=== PATIENT | female | born 1990 | race Caucasian/White ===

== ENCOUNTER 2018-04-25 10:53 | Day surgery (SDC) | payer OTHER ==
--- NOTE | 2018-04-24 20:57 | PDGENHP ---
History and Physical - Chief Complaint RIGHT HIP PAIN - History of Present Illness 1. Bilateral~Femoroacetabular impingement (JEM) Cam type,~with~resultant labral tear; RIGHT SIDE SYMPTOMATIC 2. 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 ~Yosi enjoys crew, yoga, hiking and weight lifting. Yonatan's~right~hip pain~started July 2017, with~no~recalled trauma or injury, and with~no~previous complaints.~Yosidoes not have~a known history of hip dysplasia. Presentation today is of~anterior, posterior, lateral~right~hip pain. ~The hip~ does not~wake her~at night and~does~click and catch on~her. Sitting~can be uncomfortable~for her.~Yosidoes~report suffering from lower back pain episodes. Yosihas~participated in physical therapy (over 6 weeks)~and has~tried other conservative measures including ultrasound treatment.~Aneta~has not~received sufficient symptomatic improvement. Yosihas~utilized medication for pain management, including NSAID.~Yosi has used this~medication~intermittently since the pain began. Yosidenies issues with the left~hip. ~ Yosiunderstands that~aneta~has a hip and pelvis problem which should be researched and wishes to get a better understanding of~her~hip status, followed by an establishment of a treatment strategy, hoping~gopiwould be able to get back to~her~well being active life. History: Past medical history:~~ None which is relevant~ Relevant familial history:~None which is relevant~ Past surgical history:~ None Yosihas never received general anesthesia. I have reviewed, verified and agree with the past medical, surgical, family and social history. Current Medications:~has a current medication list which includes the following prescription(s): 5-hydroxytryptophan. ALLERGIES:~has No Known Allergies. Objective: Physical Examination: Yosiis 5~feet~4~inches tall and weighs~143~Lbs. Yonatan~is AAO x3; she~is well-nourished, in NAD. Skin is warm and dry. ~Breathing is non-labored. ~CV with RRR by pulse. Abdomen is soft, NTND. Currently,~she~walks with a~abnormal~antalgic gait favoring Left side. Trendelenburg sign is~negative~and proprioception~is normal,~both~sides. She~presents~with moderate~signs of joint laxity.~Beightons Score:~5 (not knees) Lower spine examination is~negative~for sciatic or femoral nerve irritation with negative~SLR &~femoral stretch tests. Range of motion of the spine is normal~for flexion, extension, and rotations,~with no~associated pain. Strength, Sensation and pulses are~normal -~bilaterally Ankles and knees exams are~normal~and~no~mal-alignment is evident.~ She~has~left~0.5~cm short leg length discrepancy. Thigh circumference is~symmetric~with no evidence for muscle atrophy~on both~ sides. Hip ROM (degrees): FL ER At 90~hip FL IR At 90~hip FL AB AD EX IR Neutral hip ER Neutral hip R 105 55 15 35 5 10 50 25 L 105 50 40 45 5 10 55 15 Specific hip and pelvis tests: Impingement Test ALAN Roll Add. Longus R +++ +++ + + L Negative Negative Negative Negative Glut. Med ITB Posterior Imp R Negative 5/5 strength Negative 5/5 strength Negative L Negative 5/5 strength Negative 5/5 strength Negative Squeeze test measured~strong Bony Symphysis pubis is~pain free~to touch while concentric activity of the rectus abdominis, does not~produce pain at its insertion. Ilio Psos specific tests are~positive for pain during cycling for~the right hip~ and remarkable for non painful snap HF has~pain and some weakness Right Hip. Posterior~capsule tenderness RIGHT Hip Greater trochanteric burse is~pain free~on both hips. Piriformis tests: FAIR is~negative,~with no~local signs of neuritis related to sciatic nerve. SIJs examination is~normal~with~normal~ALAN in relation and local tenderness. Hamstrings tests are~negative~functional contraction and negative~tendinopathy both hips. On a daily basis, the following percentages reflectDoris's overall total pain : Deep hip:~100% Imaging: Radiology studies which I~have personally reviewed, analyzed and measured are below: XR: AP of the hip and pelvis: Performed in a~good~technique Coccyx to pubic symphysis distance~0.5~cm. 0~degrees [place]~Lines are preserved. Minimal~Pathological signs are seen in the Symphysis Pubis.~ Minimal~Pathological signs are seen at the Ischial~tuberosity. ~ Specific measurements show: NSA~ LCE Sourcil~Angle Sharp's angle Lat. Cam Lat. Pincer C.Over~sign Head~Coverage % ATDmm R N 22 7 42 + - - 78 N L N 25 5 35 + - - N N Pos. wall sign ISS NAD ~~Dysplasia Comments R Negative Negative 13.3~mm + L Negative Negative 20~mm Negative Sclerosis Sup. Lat. OA Cysts Joint Space-WBZ Joint Space-Medial R Negative Negative Negative 4.9~mm 4.3~mm L Negative Negative Negative 4.8~mm 3.0~mm X Table lateral: Anterior cam lesion is~seen~on both hips. Alpha Angle: ~ Right~62~dergrees Left~58~degrees Impression and plan:Oneida Delucais a~27 y.o.~active female~suffering from symptomatic~Right~hip pain due to Femoroacetabular impingement (JEM)~Cam type,~with~resultant labral tear and~Borderline Hip Dyplasia~causing significant disability to~her~and altering~ her~sport and life activities. Physical examination, imaging, and~her~story correspond with the diagnosis mentioned above. I explained that hip dysplasia is a condition wherein the hip joint has excessive play~and instability due to a variety of factors, including the depth and adequacy of the socket, the orientation of the femur bone, and ligament laxity around the hip joint. Dysplasia ranges in severity from borderline to priscilla, with treatment options being specific to the specific nature of the problem. Left untreated, the instability in the hip joint can cause progressive tearing of the labrum and deterioration of the surface cartilage, ultimately resulting in progressive osteoarthritis of the hip. I explained that femoroacetabular impingement (JEM - Cam type) arises due to a bony or soft tissue conflict between the femur (ball) and acetabulum (socket) caused by an abnormality in the shape of the femoral head and neck. Over time, repetitive impingement can result in damage to the labrum and adjacent surface cartilage within the socket, ultimately giving rise to progressive osteoarthritis of the hip. I explained that although a labral tear can be a source of pain, it is rarely the root of the problem and typically occurs secondary to an underlying abnormality in the shape and mechanics of the hip joint. I reviewed conservative treatment options for Dysplasia and JEM including activity modification to avoid positions of impingement or instability, physical therapy, non-steroidal anti-inflammatory medications, and various injections (corticosteroid and PRP) aimed at reducing inflammation in the hip joint or/and preventing dynamic instability and impingement. PRP injections may promote healing and reduce symptoms in certain cases but it will not repair chronically damaged tissue. Although these measures may help to buy time~and reduce current level of symptoms, they are not a definitive solution to the problem given the underlying abnormality in the shape of the hip joint. Patients who have failed conservative management and continue to experience symptoms are candidates for definitive surgical treatment, which may consist of hip arthroscopy alone or in combination with more invasive bony realignment procedures of the hip socket and/or femur called periacetabular osteotomy (LEDY) or derotational femoral osteotomy (DFO). Hip arthroscopy typically includes treating the labrum with either repair or reconstruction of the torn labrum; as well as addressing the underlying abnormalities by restoring the normal shape to the hip joint. If the cartilage is damaged a Microfracture surgical procedure may also be necessary to help stimulate the growth of fibrocartilage. If a patient requires a labral reconstruction or a Microfracture, the initial rehabilitation from the surgery may take longer, but the detention results are typically favorable. I reviewed the technical aspects of periacetabular osteotomy (LEDY) including risks, benefits, and expected course of recovery.~Yonatan~understands that LEDY is an inpatient procedure carried out through two medium sized incisions on the front and back of the hip joint. The hip socket is cut, realigned, and stabilized with 2 3 internal screws. Risks include infection, bleeding, injury to nearby nerves or vessels, stiffness, persistent pain, instability, failure of bony healing, implant related complications, and venous thromboembolic disease. Rarely, revision surgery may be required to address these problems. Risks, potential complications, side effects and recovery from surgical procedure were discussed in length. We explained how this surgery is an open procedure, and though patients tend to do well in the long-term, it involves significant pain in the first 2-4 weeks post-op and a rather lengthy rehab.~Overall recovery takes approximately 6 12~months depending on the extent of damage and degree of repair. Yosiunderstands that she~will undergo hip arthroscopy 1 week prior to the LEDY to address damage inside the hip joint. Yosiunderstands that hip arthroscopy and LEDY are two separate procedures that are best performed one week apart, with the arthroscopy commencing first to "tighten up" any pathology evident in the hip joint (labral repair, etc.) and the LEDY open procedure occurring 7-10 days later to realign the acetabulum. We encouraged~Yosito review our website to learn more about PRP injections. Yosiwill review the info presented. In order to obtain more detailed information regarding the alignment, orientation, and shape of the bony hip and pelvis I will order a CT scan to be performed. The results of the CT scan, including femoral torsion and acetabular version measured values and 3D images, will aid me in deciding on the best treatment strategy and surgical pre-planning. In order to better evaluate the soft tissues and cartilage of the hip joint, I will order an MRI scan. Yosiis going to contact us after completing her~imaging studies. Yosiis happy with this plan. I have also supplied~her~with handouts, outlining the expected surgical treatment and rehab involved. I wish~Valdomaliall the best, ~~ Josesito Rosales, PAC History Information - Allergies/Home Medication List Allergies/Adverse Reactions: diphenhydramine [From Benadryl] Allergy (Verified 04/06/18 12:41) "PAWING AT THINGS" WHILE ASLEEP nitrous oxide Allergy (Verified 04/06/18 12:41) MIGRAINE, NAUSEA Home Medications: Aleve 04/06/18 [Last Taken Unknown] Herbals/Supplements -Info Only 04/06/18 [Last Taken Unknown] Ibuprofen 04/06/18 [Last Taken Unknown] I have personally reviewed and updated: medical history - Social History Smoking Status: Never smoked Review of Systems Review of Systems: Physical Exam Physical Exam:
[2018-04-25] MEDS ORDERED: ACETAMINOPHEN 500 MG TAB PO ONE (11:26)
[2018-04-25] MEDS ORDERED: PREGABALIN 150 MG CAP PO ONE (11:26)
[2018-04-25] MEDS ORDERED: ceFAZolin 2 GM/DEXTROSE 100 ML IV ONE (11:26)
[2018-04-25] MEDS ORDERED: LR 1,000 ML IV ONE (11:27)
[2018-04-25] MEDS ORDERED: EPINEPHrine 30 MG/30 ML MDV (0.1 MG/0.1 ML) ONE (12:35)
[2018-04-25] MEDS ORDERED: BUPIVACAINE 0.25% 30 ML SDV ONE (12:35)
[2018-04-25] MEDS ORDERED: MIDAZOLAM 2 MG/2 ML VIAL IVP ONE (12:49)
--- NOTE | 2018-04-25 12:49 | PDANEPAE ---
ANE History of Present Illness right hip dysplasia, here for Right hip scope/bx ANE Past Medical History - Cardiovascular History Hx Hypertension: No Hx Arrhythmias: No Hx Chest Pain: No Hx Coronary Artery / Peripheral Vascular Disease: No Hx CHF / Valvular Disease: No Hx Palpitations: Yes Cardiovascular History Comment: OCCAS PALPITATIONS - MONITORED - Pulmonary History Hx COPD: No Hx Asthma/Reactive Airway Disease: No Hx Recent Upper Respiratory Infection: No Hx Oxygen in Use at Home: No Hx Sleep Apnea: No Sleep Apnea Screening Result - Last Documented: Negative - Neurologic History Hx Cerebrovascular Accident: No Hx Seizures: No Hx Dementia: No - Endocrine History Hx Diabetes: No - Renal History Hx Renal Disorders: No - Liver History Hx Hepatic Disorders: No - Neurological & Psychiatric Hx Hx Neurological and Psychiatric Disorders: No - Cancer History Hx Cancer: No - Congenital Disorder History Hx Congenital Disorders: No - GI History Hx Gastrointestinal Disorders: No Gastrointestinal History Comment: IBS. SENSITIVE STOMACH. LACTOSE INTOLERANT - Other Health History Other Health History: ECZEMA LEG. ROSACEA FACE - Chronic Pain History Chronic Pain: Yes (R HIP) - Surgical History Prior Surgeries: NONE ANE Review of Systems Review of Systems: - Exercise capacity METS (RN): 4 METS ANE Patient History - Allergies Allergies/Adverse Reactions: diphenhydramine [From Benadryl] Allergy (Verified 04/06/18 12:41) "PAWING AT THINGS" WHILE ASLEEP nitrous oxide Allergy (Verified 04/06/18 12:41) MIGRAINE, NAUSEA - Home Medications Home Medications: Aleve 04/06/18 [Last Taken 03/26/18] Herbals/Supplements -Info Only 04/06/18 [Last Taken 04/18/18] Ibuprofen 04/06/18 [Last Taken 04/18/18] - NPO status NPO Since - Liquids (Date): 04/25/18 NPO Since - Liquids (Time): 09:45 NPO Since - Solids (Date): 04/24/18 NPO Since - Solids (Time): 23:30 - Smoking Hx Smoking Status: Never smoked - Family Anes Hx Family Hx Anesthesia Complications: NONE ANE Labs/Vital Signs - Vital Signs Blood Pressure: 131/80 Heart Rate: 81 Respiratory Rate: 20 O2 Sat (%): 96 Height: 162.56 cm Weight: 67.132 kg ANE Physical Exam - Airway Neck exam: FROM Mallampati Score: Class 1 Mouth exam: normal dental/mouth exam - Pulmonary Pulmonary: no respiratory distress, no rales or rhonchi - Cardiovascular Cardiovascular: regular rate and rhythym, no murmur, rub, or gallop - ASA Status ASA Status: II ANE Anesthesia Plan Anesthesia Plan: general endotracheal anesthesia
[2018-04-25] MEDS ORDERED: MIDAZOLAM 2 MG/2 ML VIAL ONE (12:50)
[2018-04-25] MEDS ORDERED: LIDOCAINE 2% 100 MG/5 ML SYR ONE (13:06)
[2018-04-25] MEDS ORDERED: PROPOFOL 200 MG/20 ML VIAL ONE (13:06)
[2018-04-25] MEDS ORDERED: ROCURONIUM 100 MG/10 ML VIAL ONE (13:06)
[2018-04-25] MEDS ORDERED: fentaNYL 100 MCG/2 ML INJ ONE ×2 (13:06→16:32)
--- NOTE | 2018-04-25 15:10 | POSTOPPROG ---
Post Op Note Date of Operation: 04/25/18 Surgeon: Main Rooney Peanut Picker: Dr. Caldwell Anesthesia: GET(General Endotracheal) Pre-op Diagnosis: RIGHT JEM Post-op Diagnosis: RIGHT JEM Procedure: Right Hip Arthroscopy Inf/Abcess present in the surg proc area at time of surgery?: No
[2018-04-25] MEDS ORDERED: HYDROmorphONE/DILAUDID 2 MG/ML INJ ONE (16:32)
[2018-04-25] MEDS ORDERED: NALOXONE HCL 0.4 MG/ML INJ IVP PRN (16:33)
[2018-04-25] MEDS ORDERED: DIAZEPAM 5 MG/ML 1 ML SYR IVP PRN (16:33)
[2018-04-25] MEDS ORDERED: oxyCODONE IR 5 MG TAB PO PRN (16:33)
[2018-04-25] MEDS ORDERED: PROMETHAZINE HCL 25 MG/ML INJ IVP PRN (16:33)
[2018-04-25] MEDS ORDERED: LR 500 ML IV PRN (16:33)
[2018-04-25] MEDS ORDERED: HYDROmorphONE/DILAUDID 2 MG/ML INJ IVP PRN (16:33)
--- NOTE | 2018-04-25 16:34 | POSTANESTH ---
Post Anesthetic Evaluation Cardiovascular Status: Normal, Stable Respiratory Status: Normal, Stable Level of Consciousness/Mental Status: Can Participate in Eval, Alert and Oriented Pain Control: Adequate, Prn Tx Ordered Nausea/Vomiting Control: Adequate, Prn Tx Ordered Complications Possibly Related to Anesthesia: None Noted
[2018-04-25] MEDS: fentaNYL 100 MCG/2 ML INJ IVP PRN ×2 (16:36→16:49)
[2018-04-25] MEDS ORDERED: ONDANSETRON 4 MG/2 ML VIAL ONE (16:51)
[2018-04-25] MEDS ORDERED: oxyCODONE IR 5 MG TAB ONE (17:03)
[2018-04-25 18:01] VITALS: BP 116/51
== END 2018-04-25 18:23 | disposition home or self-care (01) ==
LOC: FSGY 10:53
PROVIDERS: ATTEND Orthopaedic Surgery Sports Medicine
PROC: BQ101ZZ Fluoroscopy of Right Hip using Low Osmolar Contrast (ICD-10-PCS; principal; 2018-04-25 13:00)
PROC: 0SQ94ZZ Repair Right Hip Joint, Percutaneous Endoscopic Approach (ICD-10-PCS; principal; 2018-04-25 13:00)
PROC: 0SB94ZZ Excision of Right Hip Joint, Percutaneous Endoscopic Approach (ICD-10-PCS; principal; 2018-04-25 13:00)
DX: M25.851 Other specified joint disorders, right hip (principal); Q65.89 Other specified congenital deformities of hip; M65.88 Other synovitis and tenosynovitis, other site
CPT/HCPCS: C1713; J0171; J0690; J1170; J2001; J2250; J2405; J2704; J3010